=== PATIENT | male | born 1995 ===

== ENCOUNTER 2018-12-14 10:25 | Emergency (ER) | payer OTHER ==
[2018-12-14] MEDS ORDERED: cefTRIAXone (Rocephin) 250 mg Inj IM ONE (11:23)
[2018-12-14] MEDS ORDERED: cefTRIAXone (Rocephin) 250 mg Inj ONE (11:51)
--- NOTE | 2018-12-14 13:02 | ED PDOC ---
HPI: Male Pain Time Seen by Provider: 12/14/18 10:49 Chief Complaint (Nursing): Male Genitourinary Chief Complaint (Provider): Male Genitourinary History Per: Patient History/Exam Limitations: no limitations Onset/Duration Of Symptoms: Days (x 5) Current Symptoms Are (Timing): Still Present Quality Of Discomfort: Burning Associated Symptoms: Other (discharge) Additional Complaint(s): 23 year old male with no medical history presents to the ED for evaluation of a burning sensation to his penis, pain on urination and penile discharge for 5 days. Patient is sexually active with both men and women and admits to having unprotected sex recently. Denies fever, back pain and abdominal pain. PMD: Hannah Cisse Past Medical History Reviewed: Historical Data, Nursing Documentation, Vital Signs Vital Signs: Last Vital Signs Temp 98.4 F 12/14/18 10:48 Pulse 88 12/14/18 10:48 Resp 18 12/14/18 10:48 BP 144/86 12/14/18 10:48 Pulse Ox 100 12/14/18 10:48 Primary Care Provider: Hannah Cisse - Medical History PMH: No Chronic Diseases - Surgical History Surgical History: No Surg Hx - Family History Family History: States: Unknown Family Hx - Allergies Allergies/Adverse Reactions: Allergies Allergy/AdvReac Type Severity Reaction Status Date / Time No Known Allergies Allergy Verified 12/14/18 10:56 Review of Systems ROS Statement: Except As Marked, All Systems Reviewed And Found Negative Genitourinary Male: Positive for: Penile Discharge, Penile Pain Physical Exam - Reviewed Nursing Documentation Reviewed: Yes Vital Signs Reviewed: Yes - Physical Exam Appears: Positive for: No Acute Distress Male Genital Exam: Positive for: normal genitalia. Negative for: testicular tenderness (R), testicular tenderness (L), urethral discharge - ECG O2 Sat by Pulse Oximetry: 100 (RA) Pulse Ox Interpretation: Normal - Progress Re-evaluation Time: 13:33 Condition: Re-examined, Improved Medical Decision Making Medical Decision Makin:24 Impression: penile discharge and discomfort Differential diagnoses include but are not limited to: gonorrhea, chlamydia, UTI, other sexually transmitted disease Initial Plan: --Urine dip --Rocephin --Zithromax --Urine dip --Chlamydia test --HIV rapid Discussed need for treatment with patient. He agrees to HIV screening. DARINEL Stewarto as capital project engineer. Scribe Attestation: Documented by Shellie Aden, acting as a scribe for Joe Camilo MD. Provider Scribe Attestation: All medical record entries made by the Scribe were at my direction and personally dictated by me. I have reviewed the chart and agree that the record accurately reflects my personal performance of the history, physical exam, medical decision making, and the department course for this patient. I have also personally directed, reviewed, and agree with the discharge instructions and disposition. Disposition - Clinical Impression Clinical Impression: Urethritis - Patient ED Disposition Is Patient to be Admitted: No Doctor Will See Patient In The: Office Counseled Patient/Family Regarding: Studies Performed, Diagnosis, Need For Followup - Disposition Referrals: [facility] [Outside] Disposition: Routine/Home Disposition Time: 13:34 Condition: GOOD Additional Instructions: MATILDE OCHOA, thank you for letting us take care of you today. Your provider was Joe Camilo MD and you were treated for MALE GENITORIUM. The emergency medical care you received today was directed at your acute symptoms. If you were prescribed any medication, please fill it and take as directed. It may take several days for your symptoms to resolve. Return to the Emergency Department if your symptoms worsen, do not improve, or if you have any other problems. Please contact your doctor or call one of the physicians/clinics you have been referred to that are listed on the Patient Visit Information form that is included in your discharge packet. Bring any paperwork you were given at discharge with you along with any medications you are taking to your follow up visit. Our treatment cannot replace ongoing medical care by a primary care provider outside of the emergency department. Thank you for allowing the [facility] team to be part of your care today. If you had an X-Ray or CT scan: A Radiologist will review the ED reading if any change in treatment is needed we will contact you. If you had a blood, urine, or wound culture: It will take several days for the results, if any change in treatment is needed we will contact you. If you had an STI test: It will take 48 hours for the results. Please call after 1 week if you have not heard back. Instructions: Urethritis, Screening for Sexually Transmitted Infections Print Language: THAI
[2018-12-14 13:57] VITALS: BP 130/78; PULSE 78; RESP 20; TEMP 97.5
[2018-12-14 13:58] VITALS: O2SAT 100
--- NOTE | 2018-12-17 09:12 | ED PDOC ---
ED Additional Note - Date & Time of Evaluation Date of Evaluation: 12/17/18 Time of Evaluation: 09:10 - Physician Additional Note Physician Additional Note: Pt tested + for N. gonorrhea. Pt treated with Rocephin in ED. Called at number provided and I spoke with patient to inform him of + gonorrhea result. He was advised to refrain from sexual contact for at least one week and the need to inform his sexual partners that they need to be tested and treated as they could continue to transmit to others. Pt demonstrated understanding.
== END 2018-12-14 13:57 | disposition home or self-care (01) ==
LOC: H.ER 10:25
DX: N34.2 Other urethritis (principal)
CPT/HCPCS: 87390; 87491; 87591; 96372; 99282; J0696